=== PATIENT | male | born 1940 | race Native Hawaiian/Other Pacific Islander ===

== ENCOUNTER 2017-03-24 07:09 | Outpatient (CLI) | payer OTHER ==
[~2017-03-24 07:09] MED LIST: ASA LOW STR81 MG PO; DIOVAN HC2 PO; HYZAAR1 TA1 PO
[2017-03-24 07:27] LABS: PLATELET COUNT 186 K/uL (142-355)
[2017-03-24 08:42] LABS: SODIUM 138 mmol/L (136-145)
== END 2017-03-24 19:34 | disposition home or self-care (01) ==
LOC: LABW 07:09
PROVIDERS: Internal Medicine
DX: I10 Essential (primary) hypertension (principal); E11.9 Type 2 diabetes mellitus without complications
CPT/HCPCS: 36415; 80053; 80061; 81000; 82043; 82570; 83036; 84443; 85027

== ENCOUNTER 2018-01-14 14:33 | Emergency (ER) | payer OTHER, MEDICARE ==
[~2018-01-14] VITALS: Ht 180.3 cm; Wt 95.3 kg
[2018-01-14 14:25] VITALS: TEMP 97.7
[2018-01-14 15:10] LABS: PLATELET COUNT 182 K/uL (142-355)
[2018-01-14 15:24] LABS: POTASSIUM 3.9 mmol/L (3.6-5.2)
[2018-01-14 15:45] LABS: PARTIAL THROMBOPLASTIN TIME 26.8 SECONDS (24.5-33.6)
[2018-01-14 16:39] VITALS: BP 156/74
== END 2018-01-14 16:43 | disposition home or self-care (01) ==
LOC: ED 14:33
PROVIDERS: Emergency Medicine
DX: R07.89 Other chest pain (principal); M19.90 Unspecified osteoarthritis, unspecified site
CPT/HCPCS: 36415; 80053; 82550; 83880; 84484; 85027; 85379; 85610; 85730; 96360; 99284; J1885

== ENCOUNTER 2019-01-12 09:08 | Outpatient (CLI) | payer OTHER, MEDICARE | END 2019-01-12 22:22 | disposition home or self-care (01) | LOC: US 09:08 → RAD 09:08 → US 09:30 | DX: R10.11 Right upper quadrant pain (principal); R10.84 Generalized abdominal pain | CPT/HCPCS: 74022 ==

== ENCOUNTER 2019-09-23 17:57 | Inpatient (IN) | payer OTHER, MEDICARE ==
[2019-09-23] VITALS (7 sets, daily range): BP systolic 121–183; BP diastolic 71–100; TEMP 97.3–99; Ht 210.8 cm; Wt 87.1 kg
[~2019-09-23] VITALS: Ht 210.8 cm; Wt 87.1 kg
[2019-09-23 18:52] LABS: PLATELET COUNT 142 K/uL (142-355)
[2019-09-23 18:57] LABS: POTASSIUM 3.8 mmol/L (3.6-5.2); SODIUM 139 mmol/L (136-145)
[2019-09-24] VITALS (7 sets, daily range): BP systolic 112–142; BP diastolic 67–83; TEMP 97.3–98.4
[2019-09-24 03:43] LABS: PARTIAL THROMBOPLASTIN TIME 31.2 SECONDS (24.5-33.6)
[2019-09-25] MEDS ORDERED: PEPCID40 MG PO (01:41)
[2019-09-25] MEDS ORDERED: LISI10TA11 PO (01:43)
[2019-09-25] MEDS ORDERED: LATA0.00 OPTH (01:45)
[2019-09-25] MEDS ORDERED: LISI20TA11 PO (01:47)
[2019-09-25] MEDS ORDERED: MONT10TA PO (01:48)
[2019-09-25] MEDS ORDERED: ALLERGY RE50 MCG/ACT NAS (01:51)
[2019-09-25] MEDS ORDERED: AMOX875T8 PO (01:57)
[2019-09-25 03:58] VITALS: BP 122/72; TEMP 98.5
[2019-09-25 04:10] LABS: PLATELET COUNT 138 K/uL (142-355)
[2019-09-25 04:34] LABS: POTASSIUM 3.7 mmol/L (3.6-5.2)
[2019-09-25 08:00] VITALS: BP 141/78; TEMP 98.4
[2019-09-25 12:00] VITALS: BP 126/76; TEMP 97.9
[2019-09-25 16:00] VITALS: BP 135/71; TEMP 97.8
[2019-09-25 20:22] VITALS: BP 133/85; TEMP 98
[2019-09-26] VITALS: BP 168/96; TEMP 98.2
[2019-09-26 04:00] VITALS: BP 144/78; TEMP 98
[2019-09-26 08:14] VITALS: BP 149/84; TEMP 98.6
[2019-09-26 12:05] VITALS: BP 149/92; TEMP 98.3
== END 2019-09-26 16:15 | disposition home or self-care (01) | DRG 68 ==
LOC: ED 17:57 → MED/SURG 20:35
PROVIDERS: Family Medicine; ADMIT Family Medicine
DX: I65.21 Occlusion and stenosis of right carotid artery (principal); R55 Syncope and collapse; I10 Essential (primary) hypertension; R07.89 Other chest pain; Z86.73 Personal history of transient ischemic attack (TIA), and cerebral infarction without residual deficits; R42 Dizziness and giddiness; J32.2 Chronic ethmoidal sinusitis
CPT/HCPCS: 36415; 80053; 81000; 82550; 84439; 84443; 84484; 85027; 85610; 85730; 93005; 96360; 96365; 96366; 96372; 99284; A9576; J1650

== ENCOUNTER 2019-10-12 09:01 | Outpatient (CLI) | payer OTHER, MEDICARE ==
[~2019-10-12 09:01] MED LIST changes: +ALLERGY RE50 MCG/ACT NAS; +AMOX875T8 PO; +LATA0.00 OPTH; +LISI10TA11 PO; +LISI20TA11 PO; +MONT10TA PO; +PEPCID40 MG PO
== END 2019-10-12 22:27 | disposition home or self-care (01) ==
LOC: US 09:01
DX: I10 Essential (primary) hypertension (principal); E78.49 Other hyperlipidemia; R74.8 Abnormal levels of other serum enzymes; R10.12 Left upper quadrant pain

== ENCOUNTER 2020-08-20 12:36 | Outpatient (CLI) | payer OTHER | END 2020-08-20 21:35 | disposition home or self-care (01) | LOC: RAD 12:36 | PROVIDERS: ATTEND Nurse Practitioner Family | DX: I10 Essential (primary) hypertension (principal); E78.49 Other hyperlipidemia; K21.9 Gastro-esophageal reflux disease without esophagitis; E66.9 Obesity, unspecified; M25.512 Pain in left shoulder; R29.898 Other symptoms and signs involving the musculoskeletal system; R29.6 Repeated falls ==

== ENCOUNTER 2020-09-06 08:10 | Outpatient (CLI) | payer OTHER | END 2020-09-06 18:56 | disposition home or self-care (01) | LOC: CT 08:10 | PROVIDERS: ATTEND Nurse Practitioner Family | DX: I10 Essential (primary) hypertension (principal); E78.49 Other hyperlipidemia; K21.9 Gastro-esophageal reflux disease without esophagitis; E66.9 Obesity, unspecified; M25.519 Pain in unspecified shoulder; R29.898 Other symptoms and signs involving the musculoskeletal system; R29.6 Repeated falls; R10.12 Left upper quadrant pain; R35.0 Frequency of micturition | CPT/HCPCS: 36415; 82565; 84520; Q9963 ==

== ENCOUNTER 2020-09-14 13:31 | Outpatient (CLI) | payer OTHER ==
[2020-09-14 14:13] LABS: PLATELET COUNT 181 K/uL (142-355)
== END 2020-09-14 19:05 | disposition home or self-care (01) ==
LOC: LABW 13:31
PROVIDERS: ATTEND Nurse Practitioner Family
DX: R93.5 Abnormal findings on diagnostic imaging of other abdominal regions, including retroperitoneum (principal); N40.0 Benign prostatic hyperplasia without lower urinary tract symptoms; R35.1 Nocturia; R35.0 Frequency of micturition
CPT/HCPCS: 36415; 80053; 82150; 83690; 84153; 85027

== ENCOUNTER 2020-09-25 07:23 | Outpatient (CLI) | payer OTHER | END 2020-09-25 23:10 | disposition home or self-care (01) | LOC: US 07:23 | PROVIDERS: ATTEND Nurse Practitioner Family | DX: R93.5 Abnormal findings on diagnostic imaging of other abdominal regions, including retroperitoneum (principal); N40.0 Benign prostatic hyperplasia without lower urinary tract symptoms; R35.1 Nocturia; R35.0 Frequency of micturition; R10.13 Epigastric pain; R10.12 Left upper quadrant pain ==

== ENCOUNTER 2021-06-20 09:27 | Outpatient (CLI) | payer OTHER | END 2021-06-20 19:23 | disposition home or self-care (01) | LOC: LABW 09:27 | PROVIDERS: ATTEND Nurse Practitioner Family | DX: R42 Dizziness and giddiness (principal); R35.1 Nocturia | CPT/HCPCS: 36415; 83930; 84588 ==

== ENCOUNTER 2021-07-08 08:42 | Outpatient (CLI) | payer OTHER | END 2021-07-08 19:21 | disposition home or self-care (01) | LOC: MRI 08:42 | PROVIDERS: ATTEND Nurse Practitioner Family | DX: R42 Dizziness and giddiness (principal); R35.81 Nocturnal polyuria; M54.2 Cervicalgia; R51.9 Headache, unspecified ==

== ENCOUNTER 2021-12-02 10:42 | Outpatient (CLI) | payer OTHER | END 2021-12-02 18:57 | disposition home or self-care (01) | LOC: US 10:42 | PROVIDERS: ATTEND Nurse Practitioner Family | DX: I73.9 Peripheral vascular disease, unspecified (principal) ==

== ENCOUNTER 2021-12-04 13:31 | Outpatient (CLI) | payer OTHER | END 2021-12-04 19:00 | disposition home or self-care (01) | LOC: US 13:31 | PROVIDERS: ATTEND Nurse Practitioner Family | DX: I73.9 Peripheral vascular disease, unspecified (principal) ==

== ENCOUNTER 2022-02-07 08:33 | Outpatient (CLI) | payer OTHER | END 2022-02-07 19:17 | disposition home or self-care (01) | LOC: US 08:33 | PROVIDERS: ATTEND Surgery | DX: I65.21 Occlusion and stenosis of right carotid artery (principal) ==

== ENCOUNTER 2022-03-20 11:53 | Outpatient (CLI) | payer OTHER | END 2022-03-20 19:07 | disposition home or self-care (01) | LOC: RAD 11:53 | PROVIDERS: ATTEND Nurse Practitioner Family | DX: M54.2 Cervicalgia (principal); R10.32 Left lower quadrant pain; K57.30 Diverticulosis of large intestine without perforation or abscess without bleeding ==

== ENCOUNTER 2022-03-25 07:59 | Outpatient (CLI) | payer OTHER | END 2022-03-25 18:51 | disposition home or self-care (01) | LOC: CT 07:59 | PROVIDERS: ATTEND Nurse Practitioner Family | DX: M54.2 Cervicalgia (principal); R10.32 Left lower quadrant pain; K57.30 Diverticulosis of large intestine without perforation or abscess without bleeding ==

== ENCOUNTER 2022-10-16 09:19 | Inpatient (IN) | payer OTHER ==
[~2022-10-16] VITALS: Ht 180.3 cm; Wt 91.3 kg
[2022-10-16 09:19] VITALS: BP 132/77; TEMP 99.4
[2022-10-16 10:25] LABS: PLATELET COUNT 147 K/uL (142-355)
[2022-10-16 10:38] LABS: POTASSIUM 3.8 mmol/L (3.6-5.2)
[2022-10-16 10:53] LABS: PARTIAL THROMBOPLASTIN TIME 30.1 SECONDS (24.5-33.6)
[2022-10-16 12:34] VITALS: BP 140/57; TEMP 98.8; Ht 180.3 cm; Wt 91.3 kg
[2022-10-16] MEDS ORDERED: NEURONTIN 100M100 MG PO (13:19)
[2022-10-16] MEDS ORDERED: BRIMONIDINE0.2 % OPTH (13:20)
[2022-10-16] MEDS ORDERED: LIPITOR10 MG PO (13:20)
[2022-10-16] MEDS ORDERED: AMLODIPINE BESYLATE PO (13:21)
[2022-10-16] MEDS ORDERED: LOSA50TA PO (13:22)
[2022-10-16] MEDS ORDERED: ASA LOW DOSE81 MG PO (13:22)
[2022-10-16 16:28] VITALS: BP 138/68; TEMP 98.4
[2022-10-16 19:31] VITALS: BP 146/68; TEMP 98.1
[2022-10-16 23:30] VITALS: BP 134/66; TEMP 99.6
[2022-10-17 03:34] VITALS: BP 145/71; TEMP 100.3
[2022-10-17 03:59] VITALS: TEMP 99
[2022-10-17 05:02] LABS: PLATELET COUNT 133 K/uL (142-355)
[2022-10-17 05:24] LABS: POTASSIUM 4.2 mmol/L (3.6-5.2)
[2022-10-17 08:00] VITALS: BP 137/70; TEMP 97.4
[2022-10-17 12:00] VITALS: BP 134/70; TEMP 98.4
[2022-10-17 16:00] VITALS: BP 133/67; TEMP 98.4
[2022-10-17 20:00] VITALS: BP 120/68; TEMP 97.9
[2022-10-18] VITALS: BP 124/70; TEMP 97.8
[2022-10-18 04:00] VITALS: BP 117/59; TEMP 97.4
[2022-10-18 08:00] VITALS: BP 121/63; TEMP 98.6
[2022-10-18 12:00] VITALS: BP 125/63; TEMP 97.7
[2022-10-18 16:00] VITALS: BP 133/68; TEMP 97.5
[2022-10-18 20:00] VITALS: BP 132/69; TEMP 97.5
[2022-10-19] VITALS: BP 145/77; TEMP 97.8
[2022-10-19 04:00] VITALS: BP 132/70; TEMP 97.9
[2022-10-19 08:00] VITALS: BP 139/73; TEMP 97.5
[2022-10-19 12:00] VITALS: BP 141/73; TEMP 97.8
[2022-10-19 16:00] VITALS: BP 131/76; TEMP 97.5
[2022-10-19 20:00] VITALS: BP 139/75; TEMP 97.5
[2022-10-20] VITALS: BP 135/71; TEMP 97.7
[2022-10-20 04:00] VITALS: BP 146/69; TEMP 97.7
[2022-10-20 08:29] VITALS: BP 164/78; TEMP 97.8
[2022-10-20 12:00] VITALS: BP 146/71; TEMP 97.8
[2022-10-20] MEDS ORDERED: ASCO500T18 PO (12:21)
[2022-10-20] MEDS ORDERED: FAMOTIDINE20 MG PO (12:22)
[2022-10-20] MEDS ORDERED: PULMICORT180 MCG/AC INH (12:22)
[2022-10-20] MEDS ORDERED: CHOL100034 PO (12:22)
[2022-10-20] MEDS ORDERED: OSEL75CA PO (12:23)
[2022-10-20] MEDS ORDERED: ZINC220C4 PO (12:24)
== END 2022-10-20 15:10 | DRG 179 ==
LOC: ED 09:19 → MED/SURG 11:00
PROVIDERS: ADMIT Emergency Medicine; ATTEND Internal Medicine
DX: U07.1 COVID-19 (principal); J10.1 Influenza due to other identified influenza virus with other respiratory manifestations; R42 Dizziness and giddiness; R26.89 Other abnormalities of gait and mobility; R53.1 Weakness; I10 Essential (primary) hypertension; H40.89 Other specified glaucoma; E78.49 Other hyperlipidemia; E80.6 Other disorders of bilirubin metabolism; Z86.73 Personal history of transient ischemic attack (TIA), and cerebral infarction without residual deficits
CPT/HCPCS: 36415; 80053; 81002; 83880; 84484; 85027; 85379; 85610; 85730; 87502; 87635; 93005; 96360; 96361; 96365; 96367; 96372; 96374; 96375; 96376; 99284; J0456; J1100; J1650; J2405; U0003

== ENCOUNTER 2022-10-20 16:10 | Inpatient (IN) | payer OTHER ==
[~2022-10-20 16:10] MED LIST changes: +AMLODIPINE BESYLATE PO; +ASA LOW DOSE81 MG PO; +ASCO500T18 PO; +BRIMONIDINE0.2 % OPTH; +CHOL100034 PO; +FAMOTIDINE20 MG PO; +LIPITOR10 MG PO; +LOSA50TA PO; +NEURONTIN 100M100 MG PO; +OSEL75CA PO; +PULMICORT180 MCG/AC INH; +ZINC220C4 PO
== END 2022-10-26 12:00 | disposition home health service (06) ==
LOC: PAVC 16:10
PROVIDERS: ADMIT Internal Medicine; ATTEND Internal Medicine
DX: U07.1 COVID-19 (principal); J10.2 Influenza due to other identified influenza virus with gastrointestinal manifestations; J20.8 Acute bronchitis due to other specified organisms; M62.81 Muscle weakness (generalized); R26.2 Difficulty in walking, not elsewhere classified; R27.8 Other lack of coordination; R42 Dizziness and giddiness; Z74.1 Need for assistance with personal care
CPT/HCPCS: 87081

== ENCOUNTER 2022-11-05 13:43 | Outpatient (CLI) | payer OTHER | END 2022-11-05 19:16 | disposition home or self-care (01) | LOC: RAD 13:43 | PROVIDERS: ATTEND Nurse Practitioner Family | DX: M25.552 Pain in left hip (principal) ==

== ENCOUNTER 2022-11-07 09:45 | Outpatient (CLI) | payer OTHER ==
[2022-11-07 10:37] LABS: PLATELET COUNT 157 K/uL (142-355)
== END 2022-11-07 22:50 | disposition home or self-care (01) ==
LOC: LABW 09:45
PROVIDERS: ATTEND Nurse Practitioner Family
DX: R19.5 Other fecal abnormalities (principal)
CPT/HCPCS: 36415; 82272; 85027

== ENCOUNTER 2023-04-03 11:39 | Outpatient (CLI) | payer OTHER | END 2023-04-03 19:42 | disposition home or self-care (01) | LOC: RAD 11:39 | PROVIDERS: ATTEND Nurse Practitioner Family | DX: Z13.820 Encounter for screening for osteoporosis (principal); I10 Essential (primary) hypertension; M85.88 Other specified disorders of bone density and structure, other site ==